=== PATIENT | female | born 1965 | race Caucasian/White ===

== ENCOUNTER → 2016-08-28 | Outpatient (CLI) | payer BC ==
[~2016-08-28] MED LIST: ADVIL200 M2 PO; CARAFATE1 G PO; CENTRUM ULTRA1 EACH PO; FAMOTIDINE PO; FLEXERIL10 MG PO; MOBIC PO; NO MEDICATIONS; PERCOCET 5-3251 TAB PO; PHENERGAN25 M1 PO; PRILOSEC PO; PRILOSEC40 MG PO; ZYRTEC10 M2; [UNRECOGNIZED DRUG - OTHER]
--- NOTE | ~2016-08-28 | TH ---
Unit #: [id number] #: [id number] Patient: JULIETA GILMAN [id number] [address] [address] [id number] O MR#: [id number] NAME: JULIETA GILMAN : 1965 SEX: F STUDY DATE/TIME: 08/28/2016 UNIT: [facility] ROOM: STUDY DESCRIPTION: Attending Physician: Chrissy De Jesus M.D. Referring Physician: Chrissy De Jesus M.D. Primary Care Physician: Chrissy De Jesus M.D. CARDIOLOGY REPORT EXAM Nuclear imaging portion. SUMMARY Patient underwent nuclear stress test. He received a resting dose of 9.09 mCi and a stress dose of 33.7 mCi. On gated imaging, patient appears to have normal wall motion with a preserved ejection fraction. The patient's LVEF is 60%. On perfusion imaging, comparing rest and stress images there appears to be no obvious reversible perfusion defect. CONCLUSION 1. No obvious ischemia. 2. Preserved ejection fraction. 3. ECG portion dictated separately. 1. Dictated by... Camron Hidalgo M.D. [place]/am TD: 08/28/2016 21:39 JOB #: [id number] CARDIOLOGY REPORT Page 1 of 1 X CAMRON HIDALGO MD CARDIOLOGY REPORT
--- NOTE | ~2016-08-28 | TH ---
Unit #: [id number] #: [id number] Patient: JULIETA GILMAN [id number] [address] [address] [id number] O MR#: [id number] NAME: JULIETA GILMAN : 1965 SEX: F STUDY DATE/TIME: 08/28/2016 UNIT: [facility] ROOM: STUDY DESCRIPTION: Attending Physician: Chrissy De Jesus M.D. Referring Physician: Chrissy De Jesus M.D. Primary Care Physician: Chrissy De Jesus M.D. CARDIOLOGY REPORT EXAM Nuclear stress test. INDICATION Chest discomfort. SUMMARY Patient underwent Cardiolite stress test. Patient exercised on a Jairo protocol for 7 minutes and 21 seconds achieving a work level METS of 8.9. Patient's resting heart rate was 87 beats per minute which increased to 162 beats per minute representing 97% of the maximal age-predicted heart rate. Patient's resting blood pressure was 153/87 mmHg which increased to 164/86 mmHg. Patient's resting ECG showed normal sinus rhythm with normal ST segments. Patient's stress ECG shows sinus tachycardia with nonspecific ST segment changes not meeting ischemic threshold. There is no ventricular or supraventricular ectopy noted. There are no pauses noted. CONCLUSION 1. Negative treadmill ECG stress test portion of Cardiolite study for ischemia. 2. Fair exercise tolerance. 3. Normal blood pressure and heart rate response to exercise. 4. Perfusion imaging dictated separately. 1. Dictated by... Camron Hidalgo M.D. [place]/am TD: 08/28/2016 21:17 JOB #: [id number] CARDIOLOGY REPORT Page 1 of 1 X CAMRON HIDALGO MD CARDIOLOGY REPORT
== END | disposition home or self-care (01) ==
LOC: CNUC 06:30
DX: R07.9 Chest pain, unspecified (principal)
CPT/HCPCS: 78452; 93017; A9500